=== PATIENT | male | born 1990 | race Caucasian/White ===

== ENCOUNTER → 2018-10-28 | Outpatient (CLI) | payer MEDICAID | LOC: FIMAGING 10:38 | PROVIDERS: ATTEND Physician Assistant | DX: J40 Bronchitis, not specified as acute or chronic (principal) ==

== ENCOUNTER 2019-01-30 12:46 | Emergency (ER) | payer MEDICAID ==
--- NOTE | 2019-01-30 13:34 | EDPHY ---
General Time Seen by Provider: 01/30/19 12:58 Narrative: CLINICAL IMPRESSION: Superficial laceration to the left heel, no foreign body ASSESSMENT/PLAN: 28-year-old male presents to the emergency department with pain on the bottom of foot after possibly stepping on glass last night. Patient reports he was intoxicated at the time and is concerned he may have glass on the bottom of his foot. He has not been walking on the foot. He has not wash the foot. Tetanus is up-to-date. He has a small nonsuturable laceration to the heel of the left foot. No radiologic evidence of foreign body or fracture. Patient declined wound care here. He will go home to wash the wound and wound care and signs and symptoms of infection discussed. Primary care follow-up recommended. Warning signs return to ED discussed discharge. DIFFERENTIAL DX: Differential includes but not limited to acute fracture, strain/sprain, joint dislocation, soft tissue contusion ED PROCEDURES: Procedure: Splint placement. A splint was applied to by printer repair technician, supervised by myself. After application of the splint I returned and re-examined the patient. The splint was adequately immobilizing the joint and distal to the splint the patient's circulation and sensation was intact. ED COURSE: 1:25 p.m.: Preliminary review of x-rays by myself shows no evidence acute foreign body or fracture. Read by Radiology with agreement. CHIEF COMPLAINT: Possible glass in the bottom of the left foot HPI: 28-year-old male presents to the emergency department with possible glass in the bottom of his left foot. Patient reports he was at a alliance party until late last night, was barefoot in a basement and believes he may have stepped on some glass. He did not actually visualize glass in the foot head is not wash the bottom of the foot. He states he has pain with ambulation. Tetanus reported up -to-date. No fall or injury. PAST MEDICAL HISTORY: No significant past medical history or surgical history reported REVIEW OF SYSTEMS: All other systems negative Constitutional: No fever, no chills Musculoskeletal: [No deformity, Skin: No rashes, color change Neurological: No sensory loss or weakness. PHYSICAL EXAM: General Appearance: Alert, oriented, appropriate for age, cooperative, NAD, well hydrated, non-toxic appearing, VSS, no hypoxia. Neurological: Alert and oriented x 3, normal sensation and strength of extremities Skin: [Small nonsuturable laceration to the heel of the left foot Musculoskeletal: Full range of motion of foot ankle and lower leg. MEDICAL DECISION MAKING: Patient was seen independently. Secondary supervising physician at time of evaluation was Dr. Webster . Diagnosis: Laceration to heal of left foot, no foreign body . New, requires workup Summary: See assessment and plan for summary of ED visit Independent visualization of images, tracing, or specimens yes. Patient Progress: Stable for discharge. - Diagnostics Imaging Results: Imaging Impressions Foot X-Ray 01/30/19 12:58 Impression: 1. Negative for acute osseous abnormality. 2. No definite radiopaque foreign body is identified. - History Smoking Status: Never smoked - Objective Vital Signs: Initial Vital Signs Temperature (C) 36.8 C 01/30/19 12:51 Heart Rate 86 01/30/19 12:51 Respiratory Rate 16 01/30/19 12:51 Blood Pressure 143/90 H 01/30/19 12:51 O2 Sat (%) 96 01/30/19 12:51 O2 Delivery Mode Room Air Allergies/Adverse Reactions: No Known Allergies Allergy (Unverified 01/30/19 12:51) Home Medications: Medication Instructions Recorded Prabhu 01/30/19 Departure - Departure Disposition: Home, Routine, Self-Care Clinical Impression: Foot laceration Qualifiers: Encounter type: initial encounter Laterality: left Qualified Code(s): S91.312A - Laceration without foreign body, left foot, initial encounter Condition: Good Instructions: Laceration (ED) Additional Instructions: DISCHARGE INSTRUCTIONS FROM YOUR DOCTOR Thank you for visiting our emergency department today. You were treated by a physician therapy administrative assistant today and your case was reviewed with our ED Attending physician. Please keep in mind that discharge from the emergency department does not mean that there is nothing wrong - it simply means that we have not identified an emergency condition that requires further evaluation or treatment in the hospital. You should always plan to follow up with primary care for re- evaluation of your condition in the next 2-3 days. If you have been referred to a specialist, please call as soon as possible (today or tomorrow) to schedule your follow up appointment at the appropriate time. THERE IS NO EVIDENCE OF FRACTURE OR GLASS FOREIGN BODY IN THE BOTTOM OF THE FOOT TODAY. YOU HAVE A SMALL CUT ON THE BOTTOM OF THE FOOT. THIS DOES NOT REQUIRE SUTURES. PLEASE KEEP THE WOUND CLEAN AND COVERED. MONITOR FOR SIGNS OF INFECTION AND RETURN TO ED SOONER FOR REDNESS, WARMTH, FEVER, DISCHARGE OR ANY OTHER SIGNS OF INFECTION. People present with illnesses and injuries in different ways, and it is always possible that we have missed something. You may always return for re-evaluation if symptoms worsen or if they are not improving or if you develop new/different symptoms. Again, thank you for choosing our emergency department. We hope that you feel better. Referrals: NONE *PRIMARY CARE P,. [Primary Care Provider] - As per Instructions Humera Gifford MD [Medical Doctor] - As per Instructions Srinivasan Pacheco MD [Medical Doctor] - As per Instructions
[2019-01-30 13:56] VITALS: BP 142/68
== END 2019-01-30 13:56 | disposition home or self-care (01) ==
DX: S91.312A Laceration without foreign body, left foot, initial encounter (principal); W25.XXXA Contact with sharp glass, initial encounter